=== PATIENT | male | born 1975 ===

== ENCOUNTER 2017-11-15 13:28 | Emergency (ER) | payer MEDICAID, OTHER ==
[2017-11-15 13:34] VITALS: TEMP 98.2; O2SAT 100; BMI 26.9
--- NOTE | 2017-11-15 16:14 | ED PDOC ---
Arrival/HPI - General Time Seen by Provider: 11/15/17 13:36 Historian: Patient - History of Present Illness Narrative History of Present Illness (Text): 42 y/o male w/ pmhx of [facility] diagnosed streptococcal pharyngitis diagnosed yesterday om 11/14/17 [place] [facility] [facility] [place]/o continued sore throat and dysphagia , denying fevers/chills/stridor/dysphonia. + allergy to pcn. Of note pt states that [facility] [place] [place] scripts were not filled. 11/15/17 16:10 Time/Duration: < week Symptom Onset: Gradual Symptom Course: Worsening Quality: Aching, Burning Past Medical History - Provider Review Nursing Documentation Reviewed: Yes Family/Social History - Physician Review Nursing Documentation Reviewed: Yes Family/Social History: No Known Family HX Allergies/Home Meds Allergies/Adverse Reactions: Allergies Penicillins Adverse Reaction (Verified 11/15/17 15:36) RASH Review of Systems - Physician Review All systems were reviewed & negative as marked: Yes - Review of Systems Constitutional: Normal Eyes: Normal ENT: Sore Throat Respiratory: Normal Cardiovascular: Normal Gastrointestinal: Normal Genitourinary Male: Normal Musculoskeletal: Normal Skin: Normal Neurological: Normal Endocrine: Normal Hemo/Lymphatic: Normal Psychiatric: Normal Physical Exam - Physical Exam Physical Exam Limitations: Altered Mental Status, Clinical Condition, Intoxication, Psychotic, Uncooperative, Other Vital Signs Temp Pulse Resp BP Pulse Ox 11/15/17 15:35 61 18 138/61 100 11/15/17 13:33 98.2 F 64 18 140/66 100 Temperature: Afebrile Blood Pressure: Normal Pulse: Regular Respiratory Rate: Normal Appearance: Positive for: Well-Appearing, Non-Toxic, Comfortable Pain Distress: None Mental Status: Positive for: Alert and Oriented X 3 Finger Stick Blood Glucose: 126 - Systems Exam Head: Present: Atraumatic, Normocephalic Pupils: Present: PERRL Extroacular Muscles: Present: EOMI Conjunctiva: Present: Normal Mouth: Present: Moist Mucous Membranes Pharnyx: Present: ERYTHEMA, TONSILS ENLARGED, Other (no uvular hydrops , uvula midline, 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 No: Respiratory Distress, Accessory Muscle Use Cardiovascular: Present: Regular Rate and Rhythm, Normal S1, S2. No: Murmurs Abdomen: Present: Normal Bowel Sounds. No: Tenderness, Distention, Peritoneal Signs Back: Present: Normal Inspection Upper Extremity: Present: Normal Inspection. No: Cyanosis, Edema Lower Extremity: Present: Normal Inspection. No: Edema Neurological: Present: GCS=15, CN II-XII Intact, Speech Normal Skin: Present: Warm, Dry, Normal Color. No: Rashes Psychiatric: Present: Alert, Oriented x 3, Normal Insight, Normal Concentration Medical Decision Making ED Course and Treatment: 42 y/o male w/ streptococcal pharyngitis , noncompliant o nabx bbPD c/o continued pain denying ay airway symptoms. 11/15/17 16:14 - Medication Orders Current Medication Orders: Discontinued Medications Azithromycin (Zithromax) 500 mg PO STAT STA PRN Reason: Protocol Stop: 11/15/17 15:37 Last Admin: 11/15/17 15:58 Dose: 500 mg Dexamethasone (Decadron Inj) 10 mg IM STAT STA Stop: 11/15/17 15:38 Last Admin: 11/15/17 15:58 Dose: 10 mg IM Administration Charges Document 11/15/17 15:58 HI (Rec: 11/15/17 15:[id number]) Injection Site MAR Injection Site Left Deltoid Charges for Administration # of IM Administrations 1 Ketorolac Tromethamine (Toradol) 60 mg IM STAT STA Stop: 11/15/17 15:38 Last Admin: 11/15/17 15:58 Dose: 60 mg MAR Pain Assessment Document 11/15/17 15:58 HI (Rec: 11/15/17 15:58 [id number]) Pain Reassessment Is this a pain reassessment? No Sleep Is patient sleeping during reassessment? No Presence of Pain Presence of Pain Yes IM Administration Charges Document 11/15/17 15:58 HI (Rec: 11/15/17 15:58 [place] [id number]) Charges for Administration # of IM Administrations 1 Disposition/Present on Arrival - Present on Arrival Any Indicators Present on Arrival: No History of DVT/PE: No History of Uncontrolled Diabetes: No Urinary Catheter: No History of Decub. Ulcer: No History Surgical Site Infection Following: None - Disposition Have Diagnosis and Disposition been Completed?: Yes Diagnosis: Streptococcal pharyngitis Disposition: RELEASED IN [employer] Disposition Time: 16:16 Patient Plan: Discharge Condition: GUARDED Discharge Instructions (ExitCare): Strep Throat (ED) Additional Instructions: Gargle w/ lemon and salt. Drink fresh teas with lemon and honey. Take antibiotics as prescribed . pain medicine as needed. Retrun for any worseining symptoms. Prescriptions: Azithromycin 250 mg PO DAILY #4 tablet Benzocaine/Menthol [Cepacol Sore Throat] 1 jn MM Q3 PRN #40 jn PRN Reason: Pain, Moderate (4-7) Ibuprofen [Motrin Tab] 600 mg PO Q6 PRN #40 tab PRN Reason: Pain, Moderate (4-7) Referrals: PCP,NO [Primary Care Provider] - Follow up with primary [facility] at [facility] [Outside] - Follow up with primary
[2017-11-15 16:48] VITALS: BP 132/87; PULSE 70; RESP 16
== END 2017-11-15 16:45 ==
LOC: ED 13:28
DX: J02.0 Streptococcal pharyngitis (principal)
CPT/HCPCS: 82948; 96372; 99283; J1100; J1885